=== PATIENT | female | born 1970 ===

== ENCOUNTER 2017-05-29 18:48 | Emergency (ER) | payer OTHER ==
--- NOTE | 2017-05-29 19:53 | ED PDOC ---
Arrival/HPI - General Chief Complaint: Lower Extremity Problem/Injury Time Seen by Provider: 05/29/17 19:31 Historian: Patient - History of Present Illness Narrative History of Present Illness (Text): 05/29/17 19:35 Pt is a 46 yo female who presents to the ED with a recommendation by her PMD for a left LE duplex to ascertain DVT/PE. Pt reports left calf pain for the past 3 days that has not resolved despite pain management. She states that the pain causes an ache and burning in the left calf especially on palpation. Pt reports left uncomplicated knee surgery 3 yrs ago but has recurring pain in her left leg below the knee along with chronic LBP. Pt denies cp, sob, ESTEBAN, fever/ chills, recent travel. Time/Duration: > week Symptom Course: Unchanged Quality: Pressure, Tightness, Cramping, Burning Severity Level: Mild, Moderate Activities at Onset: Rest Context: Home Past Medical History - Provider Review Nursing Documentation Reviewed: Yes - Travel History Have you recently traveled outside [place] w/in the past 3 mons?: No - Past History Past History: No Previous - Infectious Disease Hx of Infectious Diseases: None - Reproductive Menopause: Yes - Psychiatric Hx Substance Use: No - Surgical History Hx Orthopedic Surgery: Yes - Anesthesia Hx Anesthesia Reactions: No Family/Social History - Physician Review Nursing Documentation Reviewed: Yes Family/Social History: Unknown Family HX Smoking Status: Unknown If Ever Smoked Hx Alcohol Use: No Hx Substance Use: No Allergies/Home Meds Allergies/Adverse Reactions: Allergies codeine Allergy (Verified 05/29/17 19:00) RASH Penicillins Allergy (Verified 05/29/17 19:00) RASH Review of Systems - Review of Systems Systems not reviewed;Unavailable: Acuity of Condition Constitutional: Normal Eyes: Normal ENT: Normal Respiratory: Normal Cardiovascular: Normal Gastrointestinal: Normal Genitourinary Female: Normal Musculoskeletal: Other (Left calf pain) Skin: Normal Neurological: Normal Endocrine: Normal Hemo/Lymphatic: Normal Psychiatric: Normal Physical Exam Vital Signs Reviewed: Yes Vital Signs Temp Pulse Resp BP Pulse Ox 05/29/17 21:27 98.6 F 80 16 144/70 100 05/29/17 20:48 98.0 F 60 16 145/84 98 05/29/17 18:57 98 F 78 18 134/72 98 Temperature: Afebrile Blood Pressure: Normal Pulse: Regular Respiratory Rate: Normal Appearance: Positive for: Well-Appearing, Non-Toxic, Comfortable Pain Distress: None Mental Status: Positive for: Alert and Oriented X 3 - Systems Exam Head: Present: Atraumatic, Normocephalic Pupils: Present: PERRL Extroacular Muscles: Present: EOMI Conjunctiva: Present: Normal Mouth: Present: Moist Mucous Membranes Neck: Present: Normal Range of Motion Respiratory/Chest: Present: Clear to Auscultation, Good Air Exchange. No: Respiratory Distress, Accessory Muscle Use Cardiovascular: Present: Regular Rate and Rhythm, Normal S1, S2. No: Murmurs Abdomen: Present: Normal Bowel Sounds. No: Tenderness, Distention, Peritoneal Signs Back: Present: Normal Inspection Upper Extremity: Present: Normal Inspection. No: Cyanosis, Edema Lower Extremity: Present: Normal Inspection, CALF TENDERNESS (left LE), NORMAL PULSES, Normal ROM, Sakina's Sign (Left LE), Tenderness (left gastrocnemius hypertonic), Neurovascularly Intact, Capillary Refill < 2 s. No: Edema Neurological: Present: GCS=15, CN II-XII Intact, Speech Normal, Motor Func Grossly Intact (B/L LE), Normal Sensory Function, Gait Normal Skin: Present: Warm, Dry, Normal Color. No: Rashes Psychiatric: Present: Alert, Oriented x 3, Normal Insight, Normal Concentration Medical Decision Making ED Course and Treatment: 05/29/17 20:08 Impression Pt is a 46 yo female who presents to the ED with a recommendation by her PMD for a left LE duplex to ascertain DVT/PE. On PE, Leeft LE is positive for Sakina's sign and SLR Plan Bilateral LE duplex exam LS XR to r/o LBP radiculopathy Assess and dispo Progress Note Discussed results with patient and advised to follow up withe her PMD; pt may have lumbar radiculopthy due to disc prolapse, best observed with an MRI Pt was given muscle relaxant for muscle spasm and ibuprofen for pain and inflammation Pt was stable and ambulated well out of the ED - Lab Interpretations I have reviewed the lab results: Yes - RAD Interpretation Narrative RAD Interpretations (Text): 05/29/17 20:31 Negative for DVTs bilateral LS XR unremarkable for fractures, dislocations and subluxations, Radiology Orders: 05/29/17 19:32 DUPLEX LOWER EXTRM VEIN BILAT [US] Stat 05/29/17 19:33 LS SPINE AP/LAT [RAD] Stat Linux System Engineer: Radiologist Disposition/Present on Arrival - Present on Arrival Any Indicators Present on Arrival: No History of DVT/PE: No History of Uncontrolled Diabetes: No Urinary Catheter: No History of Decub. Ulcer: No History Surgical Site Infection Following: None - Disposition Have Diagnosis and Disposition been Completed?: Yes Diagnosis: Muscle spasm of calf Disposition: HOME/ ROUTINE Disposition Time: 21:02 Patient Plan: Discharge Condition: GOOD Discharge Instructions (ExitCare): Ibuprofen (By mouth), Methocarbamol (By mouth), Muscle Spasm (ED) Additional Instructions: Dear Patient, You have been assessed for a left lower extremity DVT via ultrasound examination , which is NEGATIVE. Your pain may be due to muscle spasm and tightness or a disc pathology in the lumbar spine that should be assessed via MRI. Take the ibuprofen we have prescribed to manage the pain and swelling and Robaxin to alleviate muscle spasm We advise that you follow up with your primary care doctor or orthopedist in the next 2 days. Should you feel and increase in pain and swelling or any other alarming signs and symptoms, return to the emergency department for evaluation All the best in your recovery. Prescriptions: Ibuprofen [Motrin Tab] 600 mg PO Q6 PRN 5 Days #20 tab PRN Reason: pain/fever Methocarbamol [Robaxin] 500 mg PO BID 5 Days #10 tab [facility] - Follow up with primary Forms: Vouchr (Amharic)
[2017-05-29 21:04] VITALS: RESP 16
[2017-05-29 21:28] VITALS: BP 144/70; PULSE 80; TEMP 98.6; O2SAT 100
--- NOTE | 2017-05-30 08:33 | RAD ---
PROCEDURE: Radiographs of the Lumbar Spine. HISTORY: LBP COMPARISON: No prior. FINDINGS: BONES: Normal alignment. No listhesis. No fracture. DISC SPACES: Unremarkable. OTHER FINDINGS: None. IMPRESSION: Unremarkable radiographs of the lumbar spine.
--- NOTE | 2017-05-30 15:28 | US ---
HISTORY: Leg pain and swelling. Evaluate for DVT PHYSICIAN(S): Hai Ervin MD. TECHNIQUE: Duplex sonography and color-flow Doppler with graded compression were used to evaluate the deep venous systems of both lower extremities. The exam is somewhat limited by body habitus. The tibial veins are not well seen. FINDINGS: The visualized deep venous systems of both lower extremities are sonographically normal and compressible. Normal wave forms and augmentation are seen. There is no sonographic evidence for deep venous thrombosis in the visualized segments of both lower extremities. IMPRESSION: No sonographic evidence for deep venous thrombosis in the visualized segments of both lower extremities.
== END 2017-05-29 21:27 | disposition home or self-care (01) ==
LOC: ED 18:48
DX: M62.831 Muscle spasm of calf (principal)